=== PATIENT | female | born 1985 | race Hispanic/Latino ===

== ENCOUNTER 2024-11-30 10:30 | Emergency (ER) | payer OTHER ==
[2024-11-30] MEDS ORDERED: Iopamidol 300 61% 100 ML VIAL FS ONE (11:27)
[2024-11-30 12:58] LABS: #Basophils 0.03 10x3/uL (0.0-0.2); #Eosinophils 0.07 10x3/uL (0.0-0.5); #Monocytes 0.88 10x3/uL (0.0-1.1); #Neutrophils 5.46 10x3/uL (1.5-8.4); %Basophils 0.3 % (0.0-2.0); %Eosinophils 0.8 % (0.0-6.0); %Lymphocytes 27.1 % (18.0-47.0); %Monocytes 9.9 % (0.0-10.0); %Neutrophils 61.7 % (40.0-75.0); Hematocrit 36.1 % (34.9-44.5); Hemoglobin 12.0 g/dL (12.0-15.5); Mean Corpuscular Hemoglobin 31.6 pg (27.0-33.0); Mean Corpuscular Volume 95.0 fL (81.6-98.3); Platelet Count 215 10x3/uL (150-450); Red Blood Cell (RBC) Count 3.80 10x6/uL (3.90-5.03); White Blood Cell (WBC) Count 8.86 10x3/uL (3.5-10.5)
[2024-11-30] MEDS ORDERED: Acetaminophen 500 MG TAB ONE (13:08)
[2024-11-30 13:13] LABS: ALT (SGPT) 12 U/L (Less than 34); AST (SGOT) 25 U/L (11-34); Albumin 3.5 g/dL (3.1-4.5); Alkaline Phosphatase 69 U/L (40-110); Anion Gap 7 mmol/L (10-20); BUN (Urea Nitrogen) 9 mg/dL (7.0-18.7); Bilirubin, Total 0.4 mg/dL (0.3-1.2); Calc. Creatinine Clearance 0 mL/min (70-130); Calcium 8.6 mg/dL (7.8-10.44); Carbon Dioxide 30 mmol/L (22-29); Chloride 105 mmol/L (98-107); Globulin 2.6 g/dL (2.4-3.5); Glucose 88 mg/dL (70-105); Lipase 7 U/L (8-78); Potassium 3.4 mmol/L (3.5-5.1); Sodium 139 mmol/L (136-145)
[2024-11-30 13:24] LABS: BHCG - Serum Negative (NEGATIVE); Pregs Control Background? CLEAR/WHITE (CLR/WHITE); Pregs Control Bar Appear? YES (CONTROL BAR)
[2024-11-30 13:36] LABS: Magnesium 1.8 mg/dL (1.6-2.6)
[2024-11-30] MEDS ORDERED: Ketorolac Tromethamine 30 MG (1 mL) VIAL ONE (13:38)
[2024-11-30 14:05] LABS: Glucose, Urine (Dipstick) Normal (Negative); Leukocyte 25 (Negative); Protein, Urine (Dipstick) Negative (Neg-Trace); Specific Gravity, Urine 1.010 (1.005-1.030)
[2024-11-30 14:14] LABS: Bacteria/HPF 1+ HPF (None Seen); CAUTI Indications for Culture Pelvic or flank pain; RBC/HPF 0-3 HPF (0-3); WBC/HPF 0-3 HPF (0-3)
[2024-11-30 14:16] LABS: Urine Culture Reflex No No
[2024-11-30] MEDS ORDERED: cefTRIAXone (ROCEPHIN) 1 GM VIAL ONE (14:48)
== END 2024-11-30 16:39 | disposition home or self-care (01) ==
LOC: CSHERS 10:30
DX: K56.41 Fecal impaction (principal); N39.0 Urinary tract infection, site not specified
CPT/HCPCS: 36415; 74177; 80053; 81001; 83605; 83690; 83735; 84703; 85025; 96365; 96375; J0696; J1885; Q9967